=== PATIENT | male | born 1945 | race Caucasian/White ===

== ENCOUNTER 2019-03-13 14:05 | Day surgery (SDC) | payer OTHER ==
[2019-03-04 14:59] VITALS: BMI 27.3
[~2019-03-13 14:05] MED LIST: BUPIVACAINE HCL/PF 0.25% (2.5MG/ML) 10 ML VIAL IJ ONE
[2019-03-13] MEDS ORDERED: BUPIVACAINE HCL 0.25% 125 MG/50 ML VIAL ONE (14:36)
[2019-03-13] MEDS ORDERED: LIDOCAINE HCL 1%, 10 MG/ML (20ML VIAL) ONE (14:37)
[2019-03-13] MEDS ORDERED: PROPOFOL 20 ML ONE (14:48)
[2019-03-13] MEDS ORDERED: MIDAZOLAM HCL 2 MG/2 ML SINGLE DOSE VIAL ONE (14:48)
[2019-03-13] MEDS ORDERED: DEXAMETHASONE SOD PHOSPHATE 4 MG/1 ML VIAL ONE (14:49)
[2019-03-13] MEDS ORDERED: ONDANSETRON 4 MG/2 ML VIAL ONE (14:49)
[2019-03-13] MEDS ORDERED: BUPIVACAINE HCL/PF 0.25% (2.5MG/ML) 10 ML VIAL IJ ONE (15:44)
[2019-03-13] MEDS ORDERED: oxyCODONE HCL 5 MG TABLET PO PRN (16:10)
[2019-03-13] MEDS ORDERED: ONDANSETRON 4 MG/2 ML VIAL IVPUSH PRN (16:10)
[2019-03-13] MEDS ORDERED: LACTATED RINGERS SOLUTION 1,000 ML IV SCH (16:15)
[2019-03-13 16:32] VITALS: TEMP 97.7
[2019-03-13 16:59] VITALS: PULSE 64
--- NOTE | 2019-03-13 17:19 | OP ---
DATE OF OPERATION: 03/13/2019 PREOPERATIVE DIAGNOSIS: Right carpal tunnel syndrome. POSTOPERATIVE DIAGNOSES: Right carpal tunnel syndrome. OPERATIVE PROCEDURE: Right endoscopic carpal tunnel release.. SURGEON: Reynaldo Gonzales MD ANESTHESIA: General. COMPLICATIONS: None. ESTIMATED BLOOD LOSS: Minimal. INDICATION FOR PROCEDURE: The patient is a 73-year-old male with the above finding, indicated for operative treatment. The risks, benefits and alternatives were discussed with the patient at length and proper informed consent was obtained. DESCRIPTION OF PROCEDURE: After proper identification of the patient and the correct operative site, the patient was brought to the operating room and placed on the operating table with all prominences well padded. Superficial landmarks were drawn on the skin. The right upper extremity was prepped and draped in the usual sterile fashion. General anesthesia was provided. An Esmarch bandage was used to exsanguinate the right upper extremity. The tourniquet was inflated to 250 mmHg. A transverse incision was made over the proximal wrist crease. The incision was taken sharply through the skin with blunt and sharp dissection through subcutaneous tissues. Care was taken to stay ulnar to the palmaris longus tendon to avoid the palmar cutaneous nerve. The antebrachial fascia was divided and the carpal canal was entered with an elevator. Soft tissue was freed from the undersurface of the transverse carpal ligament. Hamate finder and dilators were used to prepare the canal and the MicroAire endoscopic carpal tunnel release system was used and inserted to the distal edge of the transcarpal ligament, confirmed by palpation and visualization. At all times throughout the procedure, excellent visualization was achieved and at no time was any soft tissue allowed to interpose between the blade and the transcarpal ligament. The blade was then deployed and the transcarpal ligament divided in its entirety. The distal and antebrachial fascia were divided under direct visualization under a mini-open approach. This provided complete release of the median nerve at the wrist. The wound was irrigated with saline and repaired with a 5-0 Monocryl suture. Steri-Strips were placed. The patient was reversed from anesthesia and brought to the recovery room in stable condition. He tolerated the procedure well. Leti [id number]
[2019-03-13 17:38] VITALS: BP 132/85
== END 2019-03-13 17:38 | disposition home or self-care (01) ==
LOC: FASU 14:05
PROVIDERS: ATTEND Orthopaedic Surgery Hand Surgery
PROC: 01N54ZZ Release Median Nerve, Percutaneous Endoscopic Approach (ICD-10-PCS; principal; 2019-03-13 15:30)
DX: G56.01 Carpal tunnel syndrome, right upper limb (principal)
CPT/HCPCS: 94760